=== PATIENT | female | born 2005 | race American Indian/Alaskan Native ===

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

== ENCOUNTER 2023-02-03 21:15 | Emergency (ER) | payer OTHER, MEDICAID ==
[2023-02-03] MEDS ORDERED: Ondansetron 4 MG/2 ML SDV ONE (21:22)
[2023-02-03] MEDS ORDERED: LORazepam 2 MG/ML SDV ONE (21:26)
[2023-02-03 21:48] LABS: BASOPHILS PERCENT AUTO 0.2 % (0.0-1.0); EOSINOPHILS PERCENT AUTO 0.4 % (1.0-3.0); HEMATOCRIT 37.1 % (37.0-47.0); HEMOGLOBIN 11.9 g/dL (12.0-16.0); LYMPHOCYTES PERCENT AUTO 19.1 % (20.5-50.1); MEAN CORPUSCULAR HEMOGLOBIN 28.4 pg (27.0-34.0); MEAN CORPUSCULAR HGB CONC 32.1 g/dL (33.0-35.0); MEAN CORPUSCULAR VOLUME 88.5 fL (80-100); MONOCYTES PERCENT AUTO 5.9 % (2-8); NEUTROPHILS PERCENT AUTO 74.4 % (42.2-75.2); PLATELET COUNT,PLT 354 10^3/uL (150-450); RED BLOOD CELL COUNT 4.19 10^6/uL (4.2-5.4); WHITE BLOOD CELL COUNT,WBC 15.1 10^3/uL (5.0-10.0)
[2023-02-03 22:09] LABS: A/G RATIO 0.8; ALANINE AMINOTRANSFERASE,ALT 37 U/L (14-59); ALBUMIN 3.6 g/dL (3.4-5.0); ALKALINE PHOSPHATASE 104 U/L (46-116); ANION GAP 13.2 mEq/L (7-13); ASPARTATE AMNIOTRANSFERASE,AST 23 U/L (15-37); BILIRUBIN TOTAL 0.2 mg/dL (0.2-1.0); BLOOD UREA NITROGEN,BUN 5 mg/dL (7-18); BUN/CREATININE RATIO 6.1 (No establ ref range); CALCIUM 8.2 mg/dL (8.5-10.1); CARBON DIOXIDE,CO2 24 mmol/L (21-32); CHLORIDE,CL 107 mmol/L (98-107); CREATININE 0.82 mg/dL (0.55-1.02); ETHANOL BLOOD MEDICAL 254 mg/dL (0); GLUCOSE RANDOM 114 mg/dL (70-99); POTASSIUM,K 3.2 mmol/L (3.5-5.1); PROTEIN TOTAL,TP 7.9 g/dL (6.4-8.2); SODIUM,NA 141 mmol/L (136-145)
[2023-02-03 22:10] LABS: ESTIMATED GFR 106 mL/min (>=60); HCG QUALITATIVE,SERUM NEGATIVE (NEGATIVE)
[2023-02-03] MEDS ORDERED: LORazepam 2 MG/ML SDV IVPUSH ONE (22:15)
[2023-02-03] MEDS ORDERED: Lidocaine 1% with EPINEPHrine 1:100,000 20 ML MDV INJECT ONE (23:55)
== END 2023-02-04 02:12 | disposition home or self-care (01) ==
LOC: DL.ED 21:15
DX: S01.112A Laceration without foreign body of left eyelid and periocular area, initial encounter (principal); R10.30 Lower abdominal pain, unspecified; R04.0 Epistaxis; V47.6XXA Car passenger injured in collision with fixed or stationary object in traffic accident, initial encounter; Y92.410 Unspecified street and highway as the place of occurrence of the external cause
CPT/HCPCS: 12013; 36415; 70450; 71045; 72125; 74176; 80053; 80307; 84703; 85025; 99282; 99285

== ENCOUNTER 2023-02-16 12:42 | Emergency (ER) | payer MEDICAID ==
[2023-02-16] MEDS ORDERED: Sodium Chloride 0.9% 10 ML Syringe FLUSH PRN (12:55)
[2023-02-16] MEDS ORDERED: Sodium Chloride 0.9% 1,000 ML IV ONE (12:56)
[2023-02-16] MEDS ORDERED: Famotidine 20 MG/2 ML SDV IVPUSH ONE (12:56)
[2023-02-16] MEDS ORDERED: Ondansetron 4 MG/2 ML SDV IV ONE (12:56)
[2023-02-16] MEDS ORDERED: HYDROmorphone 1 MG/ML Syringe IVPUSH ONE (12:57)
[2023-02-16 12:59] VITALS: BP 123/72; PULSE 87
[2023-02-16 13:21] LABS: BASOPHILS PERCENT AUTO 0.2 % (0.0-1.0); EOSINOPHILS PERCENT AUTO 1.5 % (1.0-3.0); HEMATOCRIT 36.5 % (37.0-47.0); HEMOGLOBIN 11.7 g/dL (12.0-16.0); LYMPHOCYTES PERCENT AUTO 16.8 % (20.5-50.1); MEAN CORPUSCULAR HEMOGLOBIN 28.5 pg (27.0-34.0); MEAN CORPUSCULAR HGB CONC 32.1 g/dL (33.0-35.0); NEUTROPHILS PERCENT AUTO 74.5 % (42.2-75.2); PLATELET COUNT,PLT 434 10^3/uL (150-450); WHITE BLOOD CELL COUNT,WBC 11.3 10^3/uL (5.0-10.0)
[2023-02-16 13:40] LABS: A/G RATIO 0.9; ALANINE AMINOTRANSFERASE,ALT 56 U/L (14-59); ALBUMIN 3.8 g/dL (3.4-5.0); ALKALINE PHOSPHATASE 123 U/L (46-116); AMYLASE 43 U/L (25-115); ANION GAP 11.8 mEq/L (7-13); ASPARTATE AMNIOTRANSFERASE,AST 17 U/L (15-37); BILIRUBIN TOTAL 0.4 mg/dL (0.2-1.0); BLOOD UREA NITROGEN,BUN 15 mg/dL (7-18); BUN/CREATININE RATIO 17.9 (No establ ref range); CALCIUM 8.6 mg/dL (8.5-10.1); CARBON DIOXIDE,CO2 27 mmol/L (21-32); CHLORIDE,CL 104 mmol/L (98-107); CREATININE 0.84 mg/dL (0.55-1.02); EST CRCL DRUG DOSING (CG) 100.84 mL/min; GLUCOSE RANDOM 95 mg/dL (70-99); LIPASE 16 U/L (16-77); POTASSIUM,K 3.8 mmol/L (3.5-5.1); PROTEIN TOTAL,TP 8.1 g/dL (6.4-8.2); SODIUM,NA 139 mmol/L (136-145)
[2023-02-16 13:42] LABS: ESTIMATED GFR 103 mL/min (>=60)
[2023-02-16 13:43] LABS: LACTIC ACID 1.5 mmol/L (0.4-2.0)
[2023-02-16] MEDS ORDERED: Sucralfate Suspension 1 GM/10 ML Cup PO ONE (13:58)
== END 2023-02-16 14:22 | disposition home or self-care (01) ==
LOC: DL.ED 12:42
DX: K29.00 Acute gastritis without bleeding (principal)
CPT/HCPCS: 36415; 80053; 82150; 83605; 83690; 84145; 85025; 96374; 96375; 99283; 99284-25; A9270-GY; J1170; J2405; J3490; J7030

== ENCOUNTER 2023-02-24 19:18 | Emergency (ER) | payer MEDICAID ==
[2023-02-24 19:36] VITALS: BP 117/83; PULSE 80
== END 2023-02-24 19:47 | disposition home or self-care (01) ==
LOC: DL.ED 19:18
DX: Z87.19 Personal history of other diseases of the digestive system (principal); Z90.49 Acquired absence of other specified parts of digestive tract
CPT/HCPCS: 99282; 99283

== ENCOUNTER 2023-08-31 21:01 | Emergency (ER) | payer MEDICAID, OTHER | END 2023-08-31 22:06 | disposition left against medical advice (07) | LOC: DL.ED 21:01 | DX: Z53.21 Procedure and treatment not carried out due to patient leaving prior to being seen by health care provider (principal) ==

== ENCOUNTER 2024-01-13 22:26 | Emergency (ER) | payer MEDICAID, OTHER ==
[2024-01-13 22:37] VITALS: BP 118/67; PULSE 103
[2024-01-13 23:11] LABS: APPEARANCE,URINE SLIGHTLY CLOUDY (CLEAR); BILIRUBIN,URINE NEGATIVE (NEGATIVE); COLOR,URINE YELLOW (YELLOW); GLUCOSE,URINE NEGATIVE (NEGATIVE); KETONES,URINE NEGATIVE (NEGATIVE); LEUKOCYTE ESTERASE,URINE TRACE (NEGATIVE); NITRITE,URINE NEGATIVE (NEGATIVE); OCCULT BLOOD,URINE NEGATIVE (NEGATIVE); PROTEIN,URINE NEGATIVE (NEGATIVE); UROBILINOGEN,URINE 0.2 mg/dL (0.2-1.0)
[2024-01-13 23:24] LABS: BACTERIA,URINE FEW /HPF (0-FEW/HPF); EPITHELIAL CELLS,URINE MODERATE /HPF (NOT SEEN); MUCUS,URINE FEW /LPF (NOT SEEN); RBC,URINE 0-5 /HPF (0-5)
[2024-01-15 13:46] LABS: C.TRACHOMATIS BY TMA Positive (Negative); N.GONORRHOEAE BY TMA Negative (Negative); SOURCE URINE
== END 2024-01-13 23:31 | disposition home or self-care (01) ==
LOC: DL.ED 22:26
DX: R10.2 Pelvic and perineal pain (principal); Z90.49 Acquired absence of other specified parts of digestive tract
CPT/HCPCS: 81001; 81025; 87086; 87088; 87491; 87591; 99283

== ENCOUNTER 2024-07-06 16:50 | Emergency (ER) | payer MEDICAID ==
[2024-07-06 17:14] VITALS: BP 120/69; PULSE 91
[2024-07-06] MEDS: Acetaminophen 500 MG Tab PO ONE (17:17)
== END 2024-07-06 18:17 | disposition home or self-care (01) ==
LOC: DL.ED 16:50
DX: S20.211A Contusion of right front wall of thorax, initial encounter (principal); Z90.49 Acquired absence of other specified parts of digestive tract; W19.XXXA Unspecified fall, initial encounter
CPT/HCPCS: 71101; 99282; A9270; 99283

== ENCOUNTER 2024-10-18 18:53 | Emergency (ER) | payer SELFPAY ==
[2024-10-18 19:05] VITALS: BP 127/70; PULSE 112
== END 2024-10-18 19:32 | disposition home or self-care (01) ==
LOC: DL.ED 18:53
DX: L24.7 Irritant contact dermatitis due to plants, except food (principal); L03.116 Cellulitis of left lower limb; Z79.899 Other long term (current) drug therapy
CPT/HCPCS: 99282; 99283; A9270; J7512